=== PATIENT | male | born 1940 | race African-American/Black ===

== ENCOUNTER 2024-03-10 00:42 | Inpatient (IN) | payer OTHER ==
[2024-03-10] MEDS ORDERED: Dextrose 50% Abboject 50 ML SYRINGE SLOW IVP PRN (01:37)
[2024-03-10] MEDS ORDERED: Dextrose 5% in Water 1,000 ML IV PRN (01:37)
[2024-03-10] MEDS ORDERED: Ondansetron ODT 4 MG TAB PO PRN (01:37)
[2024-03-10] MEDS ORDERED: Ondansetron PF 4 MG/2 ML Vial IVP PRN (01:37)
[2024-03-10] MEDS ORDERED: Glucagon 1 MG/ML KIT IM PRN (01:37)
[2024-03-10 01:59] LABS: #Basophils 0.03 10x3/uL (0.0-0.2); %Basophils 0.6 % (0.0-1.0); %Eosinophils 1.1 % (0.0-10.0); %Lymphocytes 34.4 % (21.0-51.0); %Monocytes 10.5 % (0.0-10.0); %Neutrophils 53.2 % (42.0-75.0); Hematocrit 34.8 % (42.0-52.0); Hemoglobin 10.8 g/dL (14.0-18.0); Mean Corpuscular Volume 93.3 fL (78.0-98.0); Mean Platelet Volume 9.8 fL (7.4-10.4); Platelet Count 227 10x3/uL (130-400); RBC Distribution Width 12.6 % (11.5-14.5); Red Blood Cell (RBC) Count 3.73 mill/uL (4.70-6.10)
[2024-03-10 02:18] LABS: ALT (SGPT) 54 U/L (8-55); AST (SGOT) 40 U/L (5-34); Albumin 2.9 g/dL (3.4-4.8); Alkaline Phosphatase 95 U/L (40-110); Anion Gap 12 mmol/L (10-20); BUN (Urea Nitrogen) 23 mg/dL (8.4-25.7); Bilirubin, Total 0.3 mg/dL (0.2-1.2); Calc. Creatinine Clearance 0 mL/min (70-130); Calcium 8.7 mg/dL (7.8-10.44); Carbon Dioxide 20 mmol/L (23-31); Chloride 110 mmol/L (98-107); Estimated GFR 46; Globulin 2.8 g/dL (2.4-3.5); Glucose 135 mg/dL (83-110); Potassium 3.6 mmol/L (3.5-5.1); Protein, Total 5.7 g/dL (5.8-8.1); Sodium 138 mmol/L (136-145)
[2024-03-10 02:20] LABS: Hemoglobin A1c 13.7 % (4.0-6.0)
[2024-03-10 02:29] LABS: Troponin I 0.145 ng/mL (< 0.028)
[2024-03-10] MEDS: HYDROcodone/Acetaminophen 7.5/325 mg Tablet PO PRN (03:01)
[2024-03-10 04:40] LABS: Troponin I 0.156 ng/mL (< 0.028)
[2024-03-10] MEDS: Aspirin 81 mg Enteric Coated Tablet PO SCH (10:13)
[2024-03-10] MEDS: Enoxaparin 40 MG (0.4 mL) SYRINGE SC SCH (10:13)
[2024-03-10] MEDS: Tamsulosin HCl 0.4 MG CAP PO SCH (10:13)
[2024-03-10] MEDS: HYDROcodone/Acetaminophen 5/325 mg Tablet PO PRN (10:14)
[2024-03-10] MEDS: Cholecalciferol 1,000 UNITS (25 MCG) TAB PO SCH (10:14)
[2024-03-10] MEDS: Donepezil HCl 10 MG TAB PO SCH (10:15)
[2024-03-10] MEDS: Empagliflozin 25 MG TAB PO SCH (10:15)
[2024-03-10] MEDS: Insulin Lispro 100 UNIT/ML 10 ML VIAL SC PRN (13:21)
[2024-03-10] MEDS: Acetaminophen 325 MG TAB PO PRN (13:23)
[2024-03-10] MEDS: Lidocaine 1% (PF) 30 ML VIAL SC SCH (16:36)
[2024-03-10 16:39] LABS: Synovial Fluid, Protein 1.7 g/dL (Not Available)
[2024-03-10 16:51] LABS: RBC Count-Automated (BF) 377 /cu.mm; WBC/Nucleated-Auto (BF) 207 /cu.mm
[2024-03-10 17:04] LABS: Body Fluid Source Synovial Fluid
[2024-03-10 17:05] LABS: BF Color Yellow; Clarity Hazy (Clear); Tube # EDTA
[2024-03-10 17:52] LABS: BF Segmented Neutrophils 39 %; Cell Count Non Hematic 48 %; Lymphocytes 13 %
[2024-03-10] MEDS: Atorvastatin Calcium 40 MG TAB PO SCH (20:58)
[2024-03-11 05:00] LABS: #Basophils Less than 0.03 10x3/uL (0.0-0.2); %Basophils 0.5 % (0.0-1.0); %Eosinophils 1.8 % (0.0-10.0); %Lymphocytes 31.9 % (21.0-51.0); %Monocytes 9.3 % (0.0-10.0); %Neutrophils 56.2 % (42.0-75.0); Hematocrit 34.2 % (42.0-52.0); Hemoglobin 10.4 g/dL (14.0-18.0); Mean Corpuscular HGB CONC 30.4 g/dL (32.0-36.0); Mean Corpuscular Hemoglobin 29.5 pg (27.0-31.0); Mean Corpuscular Volume 96.9 fL (78.0-98.0); Mean Platelet Volume 9.9 fL (7.4-10.4); Platelet Count 239 10x3/uL (130-400); RBC Distribution Width 12.6 % (11.5-14.5); Red Blood Cell (RBC) Count 3.53 mill/uL (4.70-6.10)
[2024-03-11 05:17] LABS: Anion Gap 11 mmol/L (10-20); BUN (Urea Nitrogen) 23 mg/dL (8.4-25.7); Calc. Creatinine Clearance 40 mL/min (70-130); Calcium 8.5 mg/dL (7.8-10.44); Carbon Dioxide 20 mmol/L (23-31); Chloride 108 mmol/L (98-107); Estimated GFR 39; Glucose 238 mg/dL (83-110); Potassium 3.8 mmol/L (3.5-5.1); Sodium 135 mmol/L (136-145)
[2024-03-11] MEDS ORDERED: Ketorolac Tromethamine 30 MG (1 mL) VIAL IVP SCH (12:30)
[2024-03-11] MEDS: Ketorolac Tromethamine 30 MG (1 mL) VIAL IVP SCH (17:14)
[2024-03-11] MEDS: Insulin Lispro 100 UNIT/ML 10 ML VIAL SC PRN (20:36)
[2024-03-12 04:18] LABS: #Basophils Less than 0.03 10x3/uL (0.0-0.2); %Basophils 0.3 % (0.0-1.0); %Eosinophils 1.3 % (0.0-10.0); %Lymphocytes 30.5 % (21.0-51.0); %Monocytes 11.2 % (0.0-10.0); %Neutrophils 56.4 % (42.0-75.0); Hematocrit 31.8 % (42.0-52.0); Hemoglobin 9.7 g/dL (14.0-18.0); Mean Corpuscular HGB CONC 30.5 g/dL (32.0-36.0); Mean Corpuscular Hemoglobin 28.9 pg (27.0-31.0); Mean Corpuscular Volume 94.6 fL (78.0-98.0); Mean Platelet Volume 9.9 fL (7.4-10.4); Platelet Count 237 10x3/uL (130-400); RBC Distribution Width 12.3 % (11.5-14.5); Red Blood Cell (RBC) Count 3.36 mill/uL (4.70-6.10)
[2024-03-12 04:40] LABS: Anion Gap 12 mmol/L (10-20); BUN (Urea Nitrogen) 24 mg/dL (8.4-25.7); Calc. Creatinine Clearance 29 mL/min (70-130); Calcium 8.7 mg/dL (7.8-10.44); Carbon Dioxide 23 mmol/L (23-31); Chloride 106 mmol/L (98-107); Estimated GFR 27; Glucose 252 mg/dL (83-110); Potassium 4.7 mmol/L (3.5-5.1); Sodium 136 mmol/L (136-145)
[2024-03-12] MEDS: hydrALAZINE 20 MG/ML VIAL SLOW IVP PRN (04:52)
[2024-03-12] MEDS: Enoxaparin 30 MG (0.3 mL) SYRINGE SC SCH (08:35)
[2024-03-12] MEDS: Docusate 100 MG CAP PO SCH ×2 (11:18→17:49)
[2024-03-13 03:47] LABS: #Basophils Less than 0.03 10x3/uL (0.0-0.2); %Basophils 0.3 % (0.0-1.0); %Eosinophils 1.6 % (0.0-10.0); %Lymphocytes 32.5 % (21.0-51.0); %Monocytes 13.6 % (0.0-10.0); %Neutrophils 51.7 % (42.0-75.0); Hematocrit 33.2 % (42.0-52.0); Hemoglobin 10.4 g/dL (14.0-18.0); Mean Corpuscular HGB CONC 31.3 g/dL (32.0-36.0); Mean Corpuscular Hemoglobin 29.1 pg (27.0-31.0); Mean Platelet Volume 9.7 fL (7.4-10.4); Platelet Count 223 10x3/uL (130-400); RBC Distribution Width 12.3 % (11.5-14.5); Red Blood Cell (RBC) Count 3.57 mill/uL (4.70-6.10)
[2024-03-13 04:09] LABS: Anion Gap 10 mmol/L (10-20); BUN (Urea Nitrogen) 24 mg/dL (8.4-25.7); Calc. Creatinine Clearance 37 mL/min (70-130); Calcium 8.9 mg/dL (7.8-10.44); Carbon Dioxide 24 mmol/L (23-31); Chloride 107 mmol/L (98-107); Estimated GFR 36; Glucose 170 mg/dL (83-110); Potassium 4.3 mmol/L (3.5-5.1); Sodium 137 mmol/L (136-145)
[2024-03-13] MEDS: FLU (Fluad Triv) TS24-25 (65UP)/MF59C/PF 45 MCG/0.5 ML Syringe IM ONE (08:39)
[2024-03-13 10:42] VITALS: BMI 26.6
[2024-03-13] MEDS: Methyl Salicylate/Menthol 85 GM TUBE TOP PRN (21:01)
[2024-03-14] MEDS: Amlodipine 5 MG TAB PO SCH (09:00)
[2024-03-15 16:13] VITALS: BP 151/68; TEMP 98.7
== END 2024-03-15 17:44 | disposition home health service (06) | DRG 554 ==
LOC: 2SE 01:32 → OBSVTOIN 03-11 15:35
PROVIDERS: ADMIT Internal Medicine; ATTEND Internal Medicine
PROC: 0S9C3ZX Drainage of Right Knee Joint, Percutaneous Approach, Diagnostic (ICD-10-PCS; principal; 2024-03-10)
DX: M19.012 Primary osteoarthritis, left shoulder (principal); I5A Non-ischemic myocardial injury (non-traumatic); M17.11 Unilateral primary osteoarthritis, right knee; E11.9 Type 2 diabetes mellitus without complications; I50.9 Heart failure, unspecified; I11.0 Hypertensive heart disease with heart failure; Z95.0 Presence of cardiac pacemaker; Z90.49 Acquired absence of other specified parts of digestive tract; E11.65 Type 2 diabetes mellitus with hyperglycemia; M25.512 Pain in left shoulder; F03.90 Unspecified dementia, unspecified severity, without behavioral disturbance, psychotic disturbance, mood disturbance, and anxiety; N40.0 Benign prostatic hyperplasia without lower urinary tract symptoms
CPT/HCPCS: 36415; 36416; 80048; 80053; 82945; 83036; 84157; 84484; 84550; 85025; 85060; 87070; 87205; 89051; 89060; J0360; J1650; J1815; J1885